=== PATIENT | male | born 1955 | race Caucasian/White ===

== ENCOUNTER 2017-11-04 05:15 | Inpatient (IN) | payer MEDICAID, SELFPAY ==
[2017-10-23 10:39] VITALS: BP 127/69; PULSE 89; RESP 18; TEMP 36.9; O2SAT 93; BMI 27.5
--- NOTE | 2017-10-23 10:44 | EKG12_ITS ---
Test Reason : Blood Pressure : / mmHG Vent. Rate : 086 BPM Atrial Rate : 086 BPM P-R Int : 128 ms QRS Dur : 074 ms QT Int : 372 ms P-R-T Axes : 015 041 074 degrees QTc Int : 445 ms Normal sinus rhythm Nonspecific T wave abnormality Abnormal ECG Confirmed by GLYNN CUI, BLANCA ([id number]), editor continuity and script BOBO RICHEY ([id number]) on 10/24/2017 1:01:13 PM Referred By: Arturo Guerra Confirmed By:BLANCA MAKI MD
[2017-10-23 11:47] LABS: Hematocrit 40.8 % (40-54); Hemoglobin 13.4 g/dl (13.0-16.5); Mean Corp Hgb Conc 32.8 g/gl (32-36); Mean Corpuscular Hgb 28.9 pg (27.0-32.0); Mean Corpuscular Volume 88.1 fL (80-94); Mean Platelet Vol. 8.3 fl (6.2-12.0); Platelet Count 391 K/mm3 (150-450); RBC Distribution Width CV 13.7 % (11.6-14.6); RBC Distribution Width SD 44.3 fl (35.1-43.9); Red Blood Count 4.63 M/mm3 (4.6-6.2); White Blood Count 10.9 K/mm3 (4.4-11.0)
[2017-10-23 11:57] LABS: Anion Gap 8 (5-15); BUN 18 mg/dL (7-18); Calcium,Total 9.4 mg/dL (8.5-10.1); Chloride 102 mmol/L (98-107); EST Glomerular Filtration Rate 65 mL/min (>60); Est Glom Filt Rate - Afr Amer 79 mL/min (>60); Glucose 108 mg/dL (74-106); Potassium 4.7 mmol/L (3.5-5.1); Sodium Level 135 mmol/L (136-145)
[2017-10-23 12:02] LABS: Scan Indicated on CBC? Y/N NO
[2017-10-23 12:31] LABS: Hemoglobin A1c 6.6 % (4.2-6.3)
--- NOTE | 2017-10-23 22:43 | HP.PCM_ITS ---
History and Physical DATE OF SERVICE: 11/04/2017 SCHEDULED PROCEDURE: Right total hip arthroplasty HISTORY OF PRESENT ILLNESS: This is a 62-year-old male who is been having ongoing pain in the right hip for the past couple years. Patient states that recently over the past 3-5 months has progressively become worse. He denies any trauma or injury. Patient does complain of right lateral hip pain and right groin pain. Pain is constant, aching, sharp, and sore. Going up and down stairs, walking any amount of distance, sitting for extended periods of time increases his right hip pain. Patient has difficult time with activities of daily living including bathing and showering, getting dressed, shopping, and leisure activities such as working in the garage or working in his workshop or playing the drums. Patient has tripped and stumbled secondary to his right hip pain. Patient has tried conservative measures consisting of rest, ice, heat, elevation with no relief in symptoms. Patient has been doing home exercises with no relief in symptoms. Patient has tried oral medications consisting of Tylenol arthritis with minimal to no relief. Patient has undergone a left total hip replacement by Dr. Guerra in the past and is very happy with the outcome of the left hip. Patient does use a cane and walker for ambulatory assistance. Patient has medical history pertinent for coronary artery disease with previous heart bypass , hypertension, as well as hypercholesterolemia. Patient will be obtaining surgical clearance from his primary care physician and dietary worker. After failing conservative measures and discussing all treatment plans with Dr. Guerra, the patient would like to proceed with a right total hip arthroplasty. Patient states he has recently undergone an EKG, stress test, and echocardiogram by his dietary worker Dr. Koo. REVIEW OF SYSTEMS: ROS: Const: Denies change in appetite, fever,or weight change. CV: Denies chest pain, heart murmur and irregular heartbeat. Resp: Reports hemothorax and SOB, but denies cough, pneumonia, tuberculosis and wheezing. GI: Reports heartburn and nausea, but denies constipation, diarrhea, difficulty swallowing, bloody stools and vomiting. : . (F Genital Sx) Urinary: denies incontinence. Musculo: Reports trouble walking, but denies leg swelling, limp and weakness. Skin: Denies Raynaud's, history of shingles and tattoo. Neuro: Reports difficulty with balance and numbness/tingling but denies ambulatory dysfunction, dizziness and tremor. Psych: Denies anxiety, insomnia and stress. Ethan/Lymph: Reports past transfusion, but denies anemia and bleeding/bruising tendency. Reviewed and updated. PAST MEDICAL HISTORY: Advance Care Plan: No Advance Directives Effective Date: 08/20/2017 PMH: Medical Problems: Arthritis, Coronary Artery Disease (CAD), Diabetes, Deaf, Hard of Hearing, High Blood Pressure, Psoriasis, Hypercholesterolemia Accidents: None Surgical Hx: Appendectomy, Heart Bypass (CABG), RT Ear, Hip Replacement LT Anesthesia Complications: None Assistive Devices: Glasses, Cane Reviewed and updated. SOCIAL HISTORY: SH: Marital: .Occupation: Retired.Work Status: Retired.Hand Dominance: Right -handed. Personal Habits: Cigarette Use: Former Cigarette Smoker.Alcohol: Occasionally.Drug Use: Denies Use.Enjoy Exercising: Exercises 1-3 X/Week. Reviewed, no changes. VITALS: Ht: 69 Wt: 192lb Wt k.091 BMI: 28.4 BP: 138/82 Pulse: 96 Resp: 16 T: 97.5 T: 36.4C ALLERGIES: Nexium MEDICATIONS: Amlodipine Besylate 5 mg 1 by mouth every day, Meloxicam 15 mg 1 by mouth every day, Atorvastatin Calcium 20 mg 1 by mouth every day, Metformin HCL 500 mg 1 tab PO daily, Gabapentin 300 mg 1 by mouth three times a day, Ranitidine 150 mg 1 tab PO daily prn, Clobetasol Propionate 0.05 % apply twice A day, Nitrostat 0.4 mg one PO prn PRE-OP EXAM: General appearance:NORMAL Other: Eyes: Conjunctivae and lids: NORMAL Pupils: ERR Ears, Nose, Mouth, and Throat: NORMAL Other: Inspection of lips, teeth and gums: NORMAL Other: Neck: Examination of neck: no masses noted. Respiratory: Assessment of respiratory effort: NORMAL Other: Ausculation of lungs: clear to ausculation no wheeses, ronchi or rales. Cardiovascular: Ausculation of heart: regular rate and rhythem, no mummurs, gallops or rubs. Exam of carotid arteries: NORMAL Other: Gastrointestinal: Exam of abdomen: soft, nontender, nondistended bowel sounds present. Lymphatic: Palpation of nodes in neck: NORMAL Other: Palpation of nodes in Axillae: NORMAL Other: Neurological: see below Psychiatric: Orientation to time, place and person: NORMAL Other: Mood and affect: NORMAL Other: PHYSICAL EXAMINATION: Patient walks with an antalgic gait with use of a walker. Patient has tenderness to palpation over the lateral right hip. Does complain of right groin pain. Range of motion of the right hip is 10? of internal rotation and 30 ? of external rotation with increase in pain. Flexion to approximately 120?. Patient has a positive Lopez's exam. Sensations intact light touch. IMAGING STUDIES: 1. X-rays were obtained at [facility] on October 23, 2017 including 3 views AP pelvis AP right hip and frog-leg right reveals a previous left total hip arthroplasty without evidence of lucency loosening or subsidence. Right hip reveals severe osteoarthritis with severe joint space narrowing, subchondral sclerosis, and osteophyte formation. There are no signs of any acute fracture. IMPRESSION: 1. Severe right hip osteoarthritis 2. Presence of left total hip arthroplasty 3. Hypertension 4. Coronary artery disease with previous heart bypass 5. Hypercholesterolemia 6. Psoriasis 7. Type 2 diabetes mellitus 8. Hard of hearing PLAN: Dr. Guerra did discuss and review with the patient all treatment options including surgical versus nonsurgical. Patient wishes to proceed with above- stated procedure. Potential risks, benefits, and complications of this procedure were discussed in detail including but not limited to , infection , nerve and blood vessel damage, persistent pain, numbness, tingling, paresthesias, blood clot, pulmonary embolism, and requirement for further surgery. The patient expressed full understanding has no further questions for the doctor. Patient does agree to proceed with the above-stated procedure and has signed the surgery consent form. We are obtaining surgical clearance from patient's primary care physician and dietary worker. ___ I have re-examined the patient. There are no clinical changes since date of exam. ___ See progress notes for changes. ___ Dictated on admission Date: Time: Signature:
--- NOTE | 2017-10-31 14:38 | CASEMGMT ---
JALIL BECKFORD called and spoke with patient regarding discharge needs after upcoming surgery. Patient states that he has a walker, cane, and crutches at home. Patient states that he lives in a house with his mother. Patient is requesting HHC for therapy at discharge and prefers [facility]. Patient states that he had HHC with his prior surgery a year ago. JALIL BECKFORD will follow up with patient after surgery and will assist with discharge needs.
[2017-11-04] VITALS (11 sets, daily range): BP systolic 146–189; BP diastolic 73–88; PULSE 67–97; RESP 14–18; TEMP 36.1–37.6; O2SAT 92–100; BMI 27.5
[2017-11-04] MEDS: oxyCODONE HCl Cr 10 MG Tablet PO (06:06)
[2017-11-04] MEDS: Acetaminophen 500 MG Tablet 1000 MG PO ×3 (06:06→21:58)
[2017-11-04 07:00] LABS: Bedside Glucose 121 mg/dL (70-110)
[2017-11-04] MEDS: Cefazolin 2 GM in 0.9% Normal Saline 100 ML IV (07:51)
--- NOTE | 2017-11-04 09:11 | RAD_ITS ---
STUDY: X-RAY - PELVIS AND RIGHT HIP REASON FOR EXAM: Male, 62 years old. The patient is status post right total hip replacement. TECHNIQUE: Radiological exam, hip, unilateral, with pelvis when performed; 2 or 3 views. COMPARISON: None. FINDINGS: Right total hip replacement. There is good alignment. Postoperative soft tissue changes. Remote left hip replacement. RAD/Hip Min 2 Views (Portable) IMPRESSION: Status post right total hip replacement. There is good alignment. Postoperative soft tissue changes. Electronically Signed: Zeke Sargent MD at 11:19 EDT Tel [phone], Service support ,
--- NOTE | 2017-11-04 09:16 | OP.PCM_ITS ---
Report of Operation Date of Procedure: 11/04/17 Pre-Operative Diagnosis: severe end-stage osteoarthritis right hip Post-Operative Diagnosis: Severe end-stage osteoarthritis right hip Surgery/Procedure Performed:: Total hip arthroplasty right Description of Surgical Findings:: Eburnation of bone, periarticular osteophytes, leg length inequality medical staff manager: Aurelio Flanagan Type of Anesthesia:: Spinal Anesthesiologist: Phi Gan Special Medications: txa Specimen's removed: Bone and soft tissue Estimated Blood Loss (mL): 100 Fluids Replaced: See anesthesia report Description of Procedure: Implants: Katty Accolade 2 size 5, 52 mm Trident cup with 2 acetabular screws , 10? hooded polyethylene liner, 36-2.5 mm Biolox ceramic head Surgical indications: Patient has severe end-stage osteoarthritic changes in the right hip. They have failed conservative measures including activity modification, anti-inflammatories, use of assistive devices. This to the point where the pain affects their ability to enjoy life and complete activities of daily living without discomfort. Patient has elected to undergo the above procedure Procedure description: The patient was greeted in the preoperative area the right hip was marked with surgical marker preoperative antibiotics administered. The patient was then taken to or suite in stable condition. Preoperative tranexamic acid was also utilized. Once the patient was placed in the supine position on the operating room table and once adequate anesthesia was obtained they were then placed in the lateral decubitus position with the surgical hip facing the field. All bony prominences were well-padded. A commercial hip position was utilized. The appropriate extremity was then prepped and draped in usual sterile fashion. Ioban was placed on the skin. Surgical timeout was performed and surgery was commenced. Standard anterolateral approach to the hip was then performed incision was planned and carried out with a #10 blade. Dissection was then carried length of the incision to the IT band which was split proximally and distally. A Charnley retractor was then placed for soft tissue retraction exposing the gluteus medius. The hip was then approached through a transgluteal approach and dislocated through an anterior capsulectomy. Severe eburnation of bone was noted periarticular osteophytes were identified consistent with severe end- stage osteoarthritis. A femoral osteotomy was then created approximately 1 fingerbreadth above the lesser trochanter. This was measured and placed on the back table. Once this was complete acetabular retractors were placed anteriorly and posteriorly and a 4 mm Steinmann pin was placed anterior superior aspect of the acetabulum for soft tissue retention. Labrum was then removed from the acetabulum exposing the entire cup of the acetabulum. Sequential reaming was then commenced and the acetabulum was medialized and sequentially widened in order to accommodate appropriate size cup. The acetabular cup was then impacted into position to the appropriate depth referencing approximately 30? inversion 45? of inclination. Excellent purchase was obtained. 2 screws were placed in the cup. 10? hooded liner was then placed in the locking mechanism of the acetabulum, locking mechanism was engaged and confirmed to be locked. Attention was then turned to the femoral preparation. The hip was placed in the 90/90 position and a lateralizing box osteotome was utilized. Femoral starting awl was used followed by sequential broaching to the appropriate size. Excellent purchase was obtained with the stem no stem subsidence and excellent rotational stability was confirmed. A calcar reamer was then used in the trial head neck was placed on the broach. The hip was then located and taken through full range of motion flexion internal and external rotation as well as extension. Excellent stability was noted no impingement was identified of the components and leg lengths appear to be appropriate. The hip was at this point dislocated and the trial femoral components were removed. The final femoral stem was then implanted and impacted to the appropriate depth. Again excellent purchase was obtained no stem subsidence or rotational instability was noted. The hip was once again trialed and confirmation of leg length and stability was performed. Soft tissue tension also appeared to be appropriate. At this point the hip was redislocated and the trunnion was cleaned and dried meticulously in the appropriate size femoral head was placed on the clean dry trunnion using a 12/14 Louis taper. The hip was once again relocated and again taken through full range of motion. I did inject a cocktail of postoperative pain medication in the deep and superficial tissues. A quick Betadine bath was performed followed by copious irrigation. Anatomic closure of the gluteus medius and minimus was performed with #1 Vicryl [id number] type fashion followed by closure of the IT band with #1 Vicryl 0 Vicryl was utilized in subcutaneous tissue and surgical fermín were placed in the skin. A well- padded nonadherent dressing was applied. Patient was taken to PACU in stable condition. No complications were identified. Will follow standard postop protocol for total hip arthroplasty. Patient must use assistive device for ambulation for approximately 6 weeks of the gluteal musculature heals. Physician insurance legal assistant was integral in all portions of this procedure. They assisted with positioning the patient, draping the extremity, holding retractors , closing the wound, and applying the dressing. This was all done under my direct supervision. The physician insurance legal assistant was essential for a successful, efficient surgery. - Complications none Known - Admit VTE Documentation VTE Present on Admission: Yes VTE Mechan Device Prophylaxis: SCD's, Thigh High ESTEPHANIA Hose VTE Pharm Prophylaxis ordered?: Yes
[2017-11-04 10:01] LABS: Bedside Glucose 143 mg/dL (70-110)
[2017-11-04] MEDS: Senna/Docusate Sodium 1 Tablet 2 TABLET PO ×2 (11:29→21:58)
[2017-11-04] MEDS: 0.9% NaCl Peripheral Flush Adult/Peds IV (11:29)
[2017-11-04] MEDS: Lisinopril 20 MG Tablet PO (11:29)
[2017-11-04] MEDS: Famotidine 20 MG Tablet PO (11:29)
[2017-11-04] MEDS: amLODIPine 5 MG Tablet PO (11:29)
[2017-11-04] MEDS: Lactated Ringers 1,000 ML 125 ML IV ×2 (14:35→22:50)
[2017-11-04] MEDS: oxyCODONE 5 MG Tablet PO (14:35)
[2017-11-04] MEDS: Cefazolin 1 GM/50 ML BAG IV ×2 (16:57→22:50)
[2017-11-04] MEDS: Aspirin 325 MG Tablet PO (18:16)
[2017-11-04] MEDS: Amitriptyline 25 MG Tablet PO (21:57)
[2017-11-04] MEDS: Atorvastatin Calcium 20 MG Tablet PO (21:57)
[2017-11-05 02:25] VITALS: BP 158/73; PULSE 92; RESP 14; TEMP 37.1; O2SAT 95
[2017-11-05] MEDS: oxyCODONE 5 MG Tablet PO ×2 (02:36→14:49)
[2017-11-05 04:59] LABS: Hematocrit 31.8 % (40-54); Hemoglobin 10.4 g/dl (13.0-16.5); Mean Corp Hgb Conc 32.7 g/gl (32-36); Mean Corpuscular Hgb 28.9 pg (27.0-32.0); Mean Corpuscular Volume 88.3 fL (80-94); Mean Platelet Vol. 8.2 fl (6.2-12.0); Platelet Count 306 K/mm3 (150-450); RBC Distribution Width CV 13.3 % (11.6-14.6); RBC Distribution Width SD 41.2 fl (35.1-43.9)
[2017-11-05 05:00] LABS: Scan Indicated on CBC? Y/N NO
[2017-11-05 05:27] LABS: Anion Gap 7 (5-15); BUN 13 mg/dL (7-18); BUN/Creat Ratio 13.1 RATIO (10-20); Calcium,Total 8.3 mg/dL (8.5-10.1); Chloride 100 mmol/L (98-107); Creatinine, Serum 0.99 mg/dL (0.70-1.30); EST Glomerular Filtration Rate 81 mL/min (>60); Est Glom Filt Rate - Afr Amer 98 mL/min (>60); Estimated Creatinine Clearance 79.88 ml/min; Glucose 115 mg/dL (74-106); Potassium 4.4 mmol/L (3.5-5.1); Sodium Level 133 mmol/L (136-145)
[2017-11-05] MEDS: Acetaminophen 500 MG Tablet 1000 MG PO ×3 (05:29→22:02)
--- NOTE | 2017-11-05 07:53 | PN.ORTHO_ITS ---
Subjective: Patient sitting at bedside eating breakfast. Patient states pain is well- managed. Denies chest pain, shortness breath, calf pain, or nausea vomiting. No other complaints Objective: Dressing is clean dry intact. Negative signs and symptoms of DVT. Vital signs labs within normal limits. Patient is afebrile neurovascular is otherwise intact. No respiratory distress. - Physical Exam General: Alert, Oriented x3, Cooperative HEENT: PERRLA Oral: Moist Mucosa Neurological: Cranial nerves II-XII grossly intact Psych/Mental Status: Normal Affect, Alert and oriented to time, place, person, mood and affect Vital Signs Temp Pulse Resp BP Pulse Ox 98.7 F 92 14 158/73 H 95 11/05/17 02:25 11/05/17 02:25 11/05/17 02:25 11/05/17 02:25 11/05/17 02:25 Oxygen Flow Rate (L/min) 2 Oxygen Delivery Method Room Air Weight: 87 kg Body Mass Index (BMI) 27.5 Finger Stick Blood Glucose 143 Intake and Output for Last 24 Hours 11/03/17 11/04/17 11/05/17 23:59 23:59 23:59 Intake Total 1421 / 1421 1360 / 1360 Balance 1421 / 1421 1360 / 1360 Laboratory Tests Past 24 Hrs 11/05/17 11/05/17 04:46 04:46 WBC 10.0 RBC 3.60 L Hgb 10.4 L Hct 31.8 L MCV 88.3 MCH 28.9 MCHC 32.7 RDW 13.3 RDW Differential 41.2 Plt Count 306 MPV 8.2 Sodium 133 L Potassium 4.4 Chloride 100 Carbon Dioxide 26.0 Anion Gap 7 BUN 13 Creatinine 0.99 Estim Creat Clear Calc 79.88 Est GFR (MDRD) Af Amer 98 Est GFR (MDRD) Non-Af 81 BUN/Creatinine Ratio 13.1 Glucose 115 H Calcium 8.3 L POC Glucose 11/04/17 09:54 POC Glucose 143 H Assessment/Plan Status post right total hip arthroplasty Plan 1. Continue all pain medications as prescribed 2. Begin physical therapy today weight-bear as tolerated with walker 3. Aspirin 325 mg 1 p.o. every 12 hours ?30 days for postop DVT prophylaxis 4. Encourage incentive spirometry 5. Possible discharge home tomorrow
[2017-11-05 08:33] VITALS: BP 135/69; PULSE 93; RESP 20; TEMP 36.9; O2SAT 97
[2017-11-05] MEDS: Aspirin 325 MG Tablet PO ×2 (08:34→17:37)
[2017-11-05] MEDS: Famotidine 20 MG Tablet PO (10:05)
[2017-11-05] MEDS: amLODIPine 5 MG Tablet PO (10:06)
[2017-11-05] MEDS: Lisinopril 20 MG Tablet PO (10:06)
--- NOTE | 2017-11-05 10:18 | CASEMGMT ---
JALIL BECKFORD Face to Face with patient for initial transition planning/care coordination assessment. JALIL BECKFORD introduced self and role at [facility]. Patient sitting in chair, alert and oriented. Patient willing to participate in assessment and is able to answer all questions appropriately. Care providers, pharmacy, and demographics verified. See link attached. Patient wishes to discharge home with HHC through [facility]. Patient states that he will also need a FWW. Patient states he has no further needs or concerns at this time. JALIL BECKFORD to obtain script from [facility] for FWW. JALIL BECKFORD will send referral to [facility] to establish HHC for PT. CM to follow for discharge planning needs that may arise. Disposition Plan: Patient to discharge home with home health, family support, and follow-up plans in place.
[2017-11-05 14:45] VITALS: BP 150/81; PULSE 92; RESP 18; TEMP 37.1; O2SAT 98
--- NOTE | 2017-11-05 15:21 | CASEMGMT ---
JALIL BECKFORD obtained script for FWW from [facility] and [place] [facility] [place] be delivered to hospital prior to discharge. JALIL BECKFORD also faxed referral to [facility] and they are able to accept the patient. JALIL BECKFORD updated patient. JALIL BECKFORD will continue to follow this patient and plan for a safe discharge.
[2017-11-05 21:55] VITALS: BP 176/90; PULSE 91; RESP 14; TEMP 36.6; O2SAT 97
[2017-11-05] MEDS: Amitriptyline 25 MG Tablet PO (22:02)
[2017-11-05] MEDS: Atorvastatin Calcium 20 MG Tablet PO (22:03)
[2017-11-06 06:10] LABS: Hematocrit 36.2 % (40-54); Hemoglobin 11.6 g/dl (13.0-16.5); Mean Corpuscular Hgb 28.8 pg (27.0-32.0); Mean Corpuscular Volume 89.8 fL (80-94); Mean Platelet Vol. 8.7 fl (6.2-12.0); Platelet Count 254 K/mm3 (150-450); RBC Distribution Width CV 13.7 % (11.6-14.6); RBC Distribution Width SD 44.7 fl (35.1-43.9); Red Blood Count 4.03 M/mm3 (4.6-6.2); White Blood Count 9.9 K/mm3 (4.4-11.0)
[2017-11-06 06:11] LABS: Scan Indicated on CBC? Y/N NO
[2017-11-06 06:20] VITALS: BP 148/62; PULSE 96; RESP 18; TEMP 36.8; O2SAT 95
[2017-11-06] MEDS: Acetaminophen 500 MG Tablet 1000 MG PO (06:28)
--- NOTE | 2017-11-06 09:30 | PCM.PN.ORT ---
Subjective: Patient walking down hallway with walker and the assistance of therapy. Patient appears to be doing very well ambulates with a stable gait. Patient is complaining of some right knee pain, since the surgery. Otherwise pain is been well managed, denies chest pain, shortness breath, calf pain, nausea vomiting. She is ready for discharge home he does have to await for a ride as his home is approximately 1-1/2 hour away from the hospital Objective: Dressings clean dry intact. Vital signs labs within normal limits. Patient has negative signs and symptoms of DVT, negative calf pain. Afebrile, neurovascular is otherwise intact. Negative respiratory distress speaking in full sentences. - Physical Exam General: Alert, Oriented x3 HEENT: PERRLA Oral: Moist Mucosa Cardiovascular: Regular rate Neurological: Cranial nerves II-XII grossly intact Psych/Mental Status: Normal Affect, Alert and oriented to time, place, person, mood and affect Vital Signs Temp Pulse Resp BP Pulse Ox 98.3 F 96 18 148/62 H 95 11/06/17 06:20 11/06/17 06:20 11/06/17 06:20 11/06/17 06:20 11/06/17 06:20 Oxygen Flow Rate (L/min) 2 Oxygen Delivery Method Room Air Weight: 87 kg Body Mass Index (BMI) 27.5 Finger Stick Blood Glucose 143 Intake and Output for Last 24 Hours 11/04/17 11/05/17 11/06/17 23:59 23:59 23:59 Intake Total 1421 / 1421 1840 / 1840 700 / 700 Balance 1421 / 1421 1840 / 1840 700 / 700 Laboratory Tests Past 24 Hrs 11/06/17 05:30 WBC 9.9 RBC 4.03 L Hgb 11.6 L Hct 36.2 L MCV 89.8 MCH 28.8 MCHC 32.0 RDW 13.7 RDW Differential 44.7 H Plt Count 254 MPV 8.7 Assessment/Plan Status post right total hip arthroplasty Plan 1. Continue all pain medications as prescribed 2. Continue physical therapy with home therapy. 3. Aspirin 325 mg 1 p.o. every 12 hours ?30 days for postop DVT prophylaxis 4. Follow-up as scheduled, see pink sheet. 5. Discharge home today.
[2017-11-06] MEDS: Aspirin 325 MG Tablet PO (09:39)
--- NOTE | 2017-11-06 09:41 | PCM.DC.THR ---
Discharge Diet: No Restrictions Discharge Activity: May Not Drive, May Shower, Use Walker May shower in (days): 2 - only if incision is dry and without drainage. Do NOT soak/submerge in tub/pool/zepeda/stream/hot tub. May resume sexual activity in: No Restrictions Ice area for (Minutes): 20 - every hour while awake Weight Bearing Status: Weight bearing as tolerated Lifting Restrictions: 20 pounds Elevate: Operative Extremity Call your doctor if your incision/area has: Continuous Slow Oozing, Sudden Increased Bleeding, Increased Pain/ Swelling, Increased Redness, Foul Smelling Discharge Call your doctor if you observe: Fever of 101 or Higher, Inability to urinate, Inability to have a bowel movement, Shortness of breath, Fainting spells, Chest pain, Increased palpitations (irregular heartbeat), Calf discomfort, Uncontrolled pain Change Dressing in (Days):: 0 - Change daily and as needed. Remove Dressing in (days):: 9 Cleanse incision/area with: Soap & Water Allergies/Adverse Reactions: Allergies esomeprazole [From Nexium] Allergy (Verified 10/23/17 10:09) Swelling Medications to take at Discharge Amitriptyline HCl [Elavil] 25 mg PO QHS 10/23/17 Amlodipine Besylate/Benazepril [Amlodipine-Benazepril 5-20 mg] 1 cap PO DAILY 10/23/17 Atorvastatin Calcium [Lipitor] 20 mg PO QHS 10/23/17 Clobetasol Propionate/Emoll [Clobetasol Emollient 0.05% Crm] 15 gm TP DAILY 10/23/17 Meloxicam [Mobic] 15 mg PO DAILY 10/23/17 Metformin HCl [Glucophage] 500 mg PO DAILY 10/23/17 Nitroglycerin [Nitrostat] 0.4 mg SUBLINGUAL Q5M PRN 10/23/17 Ranitidine [Zantac] 150 mg PO DAILY 10/23/17 Acetaminophen [Tylenol] 1,000 mg PO Q8 #90 tab 11/06/17 Aspirin 325 mg PO BIDCM #60 tab 11/06/17 MorphINE [Ms Contin] 15 mg PO BID 7 Days #30 tab 11/06/17 Oxycodone [Oxyir] 5 - 10 mg PO Q6H PRN PRN 7 Days #90 tab 11/06/17 The following prescriptions were given: Oxycodone [Oxyir] 5 - 10 mg PO Q6H PRN PRN 7 Days #90 tab PRN Reason: Mod-Severe Pain (-06/04) Acetaminophen [Tylenol] 1,000 mg PO Q8 #90 tab Aspirin 325 mg PO BIDCM #60 tab MorphINE [Ms Contin] 15 mg PO BID 7 Days #30 tab Primary Care Physician: Pablo Doctor,Out of [Primary Care Provider] - Please Follow Up With: Arturo Guerra, DO When: see pink sheet
[2017-11-06] MEDS: Famotidine 20 MG Tablet PO (09:42)
[2017-11-06] MEDS: amLODIPine 5 MG Tablet PO (09:42)
[2017-11-06] MEDS: Lisinopril 20 MG Tablet PO (09:43)
[2017-11-06 09:46] VITALS: BP 153/79; PULSE 93; RESP 18; TEMP 36.7; O2SAT 97
[2017-11-06 13:25] VITALS: BP 142/78; PULSE 95; RESP 18; TEMP 36.7; O2SAT 97
== END 2017-11-06 13:42 | disposition home or self-care (01) | DRG 209 ==
LOC: ACINP 05:18 → MS3 05:24
PROVIDERS: Admitting Provider Orthopaedic Surgery; Visit Provider Orthopaedic Surgery
PROC: 0SR90JZ Replacement of Right Hip Joint with Synthetic Substitute, Open Approach (ICD-10-PCS; CPT 27130; principal; 2017-11-04 06:50)
DX: M16.11 Unilateral primary osteoarthritis, right hip (principal); Z96.642 Presence of left artificial hip joint; E11.9 Type 2 diabetes mellitus without complications; E78.00 Pure hypercholesterolemia, unspecified; I10 Essential (primary) hypertension; I25.10 Atherosclerotic heart disease of native coronary artery without angina pectoris; Z95.1 Presence of aortocoronary bypass graft; Z87.891 Personal history of nicotine dependence; L40.9 Psoriasis, unspecified; H91.90 Unspecified hearing loss, unspecified ear; Z79.84 Long term (current) use of oral hypoglycemic drugs; Z79.899 Other long term (current) drug therapy
CPT/HCPCS: 36415; 73502; 80048; 82962; 83036; 85027; 86850; 86900; 87081; 97110; 97116; 97162; 97165; 97530; 97535; J7120; A4216